=== PATIENT | female | born 1995 | race Caucasian/White ===

== ENCOUNTER 2021-08-27 19:58 | Emergency (ER) | payer OTHER ==
[2021-08-28] MEDS ORDERED: ZOFRAN ODT 4 MG4 MG SL (00:30)
== END 2021-08-28 00:47 | disposition home or self-care (01) ==
LOC: ER1 19:58
DX: R11.0 Nausea (principal)
CPT/HCPCS: 99283

== ENCOUNTER → 2021-09-25 | Outpatient (CLI) | payer OTHER ==
[~2021-09-25] MED LIST: ZOFRAN ODT 4 MG4 MG SL
== END ==
LOC: RAD 11:10
DX: M25.561 Pain in right knee (principal); M25.552 Pain in left hip; M25.551 Pain in right hip; R53.83 Other fatigue; R63.1 Polydipsia; R94.31 Abnormal electrocardiogram [ECG] [EKG]; R07.9 Chest pain, unspecified; M79.10 Myalgia, unspecified site; R23.3 Spontaneous ecchymoses; E55.9 Vitamin D deficiency, unspecified; Z90.49 Acquired absence of other specified parts of digestive tract; M47.816 Spondylosis without myelopathy or radiculopathy, lumbar region
CPT/HCPCS: 71046; 72100; 72170; 73562